=== PATIENT | female | born 2000 | race Caucasian/White ===

== ENCOUNTER 2023-08-29 08:35 | Emergency (ER) | payer OTHER ==
[2023-08-29 09:29] LABS: CORONAVIRUS COVID-19 NAA POSITIVE (NEGATIVE); INFLUENZA A NAA NEGATIVE (NEGATIVE); INFLUENZA B NAA NEGATIVE (NEGATIVE)
== END 2023-08-29 09:45 | disposition home or self-care (01) ==
LOC: MW.ED 08:35
DX: U07.1 COVID-19 (principal)
CPT/HCPCS: 0240U; 87651; 99283